=== PATIENT | male | born 1950 | race Caucasian/White ===

== ENCOUNTER → 2020-07-16 | Outpatient (CLI) | payer MEDICARE, BC ==
[~2020-07-16] MED LIST: AUGMENTIN 875-1 EACH PO; BACTROBAN OINT22 GM EXT; ZOFRAN4 MG PO
== END ==
LOC: CT 13:12
DX: D41.01 Neoplasm of uncertain behavior of right kidney (principal); N28.9 Disorder of kidney and ureter, unspecified
CPT/HCPCS: 36415; 74170; 82565; Q9967

== ENCOUNTER → 2021-02-18 | Outpatient (CLI) | payer MEDICARE | LOC: RAD 07:49 | DX: M48.061 Spinal stenosis, lumbar region without neurogenic claudication (principal); M54.16 Radiculopathy, lumbar region | CPT/HCPCS: 72132; Q9966 ==

== ENCOUNTER 2021-06-09 10:29 | Emergency (ER) | payer MEDICARE, BC, OTHER ==
[2021-06-09 14:14] LABS: RED BLOOD COUNT 4.44 M/UL (4.20-5.50); WHITE BLOOD COUNT 19.7 K/UL (4.5-11.0)
[2021-06-09 14:33] LABS: BUN/CREATININE RATIO 19 (0-10)
[2021-06-09 15:50] LABS: HEMOGLOBIN 13.4 gm/dl (14.0-17.5); RED BLOOD COUNT 4.22 M/UL (4.20-5.50); WHITE BLOOD COUNT 18.9 K/UL (4.5-11.0)
[2021-06-09 17:00] LABS: BUN/CREATININE RATIO 20 (0-10)
[2021-06-09] MEDS ORDERED: AUGMENTIN 875-1 EACH PO (18:44)
== END 2021-06-09 19:02 | disposition home or self-care (01) ==
LOC: ER1 10:29
PROVIDERS: Emergency Medicine; Family Medicine
DX: R53.83 Other fatigue (principal); D72.829 Elevated white blood cell count, unspecified; I10 Essential (primary) hypertension; Z20.822 Contact with and (suspected) exposure to COVID-19
CPT/HCPCS: 0240U; 71045; 80053; 81001; 82550; 82553; 83605; 83874; 83880; 84439; 84443; 84484; 85025; 85610; 87040; 87086; 99284; Q9967

== ENCOUNTER → 2021-07-19 | Outpatient (CLI) | payer MEDICARE, BC ==
[2021-07-19 09:40] LABS: HEMOGLOBIN 14.5 gm/dl (14.0-17.5); RED BLOOD COUNT 4.68 M/UL (4.20-5.50); WHITE BLOOD COUNT 11.4 K/UL (4.5-11.0)
[2021-07-20 05:09] LABS: A/G RATIO 1.5 (1.2-2.2); BILIRUBIN, TOTAL 0.2 mg/dL (0.0-1.2); CALCIUM, SERUM 9.4 mg/dL (8.6-10.2); CREATININE, SERUM 1.05 mg/dL (0.76-1.27); GLOBULIN, TOTAL 2.8 g/dL (1.5-4.5); POTASSIUM, SERUM 4.2 mmol/L (3.5-5.2)
== END ==
LOC: LAB 08:41
PROVIDERS: Anesthesiology
DX: M54.16 Radiculopathy, lumbar region (principal)
CPT/HCPCS: 36415; 80053; 85027